=== PATIENT | female | born 1955 | race Caucasian/White ===

== ENCOUNTER 2017-07-06 06:01 | Day surgery (SDC) | payer OTHER ==
[~2017-07-06] VITALS: Ht 157.5 cm; Wt 86.8 kg
[~2017-07-06 06:01] MED LIST: ALBU8.5H8 IH; AMLO-512 PO; ASPI81TA33 PO; ATEN100T PO; ATOR20TA86 PO; CIPR-278 PO; CLON.5 PO; CYCL10 PO; DONE10TA8 PO; FLUT16H NASAL; FURO40I IM; HYDR-3965 PO; HYDR25SU11 PR; HYDR25SU7 PR; LOSA50TA37 PO; MOME13HF IH; MONT10TA21 PO; OMEP20 PO; PARO20TA24 PO; POTA8CAP10 PO; SODIUM CHLORIDE 0.9% 1,000 ML IV ONE; TRAM50TA4 PO
[2017-07-06] MEDS ORDERED: LIDOCAINE HCL 2% 30 ML JELLY TP ONE (06:02)
[2017-07-06] MEDS ORDERED: ALBUTEROL SULFATE 2.5 MG/0.5 ML NEB SOLUTION NEB ONE (06:02)
[2017-07-06] MEDS ORDERED: BENZOCAINE 20% 50 MCG/SPRAY 57 GM TP ONE (06:02)
[2017-07-06] MEDS ORDERED: LIDOCAINE HCL 4% 50 ML SOLUTION TP ONE (06:02)
[2017-07-06] MEDS ORDERED: MIDAZOLAM HCL 2 MG/2 ML VIAL ONE (07:38)
[2017-07-06] MEDS ORDERED: FentaNYL CITRATE-PF 100 MCG/2 ML VIAL ONE (07:39)
[2017-07-06] MEDS ORDERED: MethylPREDNISolone SOD SUCC 125 MG/2 ML VIAL IVP ONE (08:45)
[2017-07-06] MEDS ORDERED: MethylPREDNISolone SOD SUCC 125 MG/2 ML VIAL ONE (08:47)
[2017-07-06] MEDS ORDERED: OXYGEN THERAPY IH SCH (20:00)
== END 2017-07-06 09:55 | disposition home or self-care (01) ==
LOC: SURGERY 06:01
PROVIDERS: ATTEND Internal Medicine Critical Care Medicine
DX: J38.4 Edema of larynx (principal); B37.0 Candidal stomatitis; J84.111 Idiopathic interstitial pneumonia, not otherwise specified; J44.9 Chronic obstructive pulmonary disease, unspecified; I10 Essential (primary) hypertension; K21.9 Gastro-esophageal reflux disease without esophagitis; Z96.651 Presence of right artificial knee joint; Z79.82 Long term (current) use of aspirin; Z79.899 Other long term (current) drug therapy
CPT/HCPCS: 31623; 31624; 71010; 87015; 87070; 87147; 87205; 87220; 88108; 88312; J2250; J2930; J3010; J7030

== ENCOUNTER 2020-12-22 06:00 | Day surgery (SDC) | payer MEDICARE, OTHER ==
[~2020-12-22] VITALS: Ht 162.6 cm; Wt 77.3 kg
[~2020-12-22 06:00] MED LIST changes: +AMLO-258 PO; -AMLO-512 PO; -ASPI81TA33 PO; +ASPI81TA87 PO; -ATEN100T PO; +ATEN100T92 PO; +CLON-592 PO; -CLON.5 PO; +FURO10VI34 IM; -FURO40I IM; +MONT-35 PO; -MONT10TA21 PO; +PARO-38 PO; -PARO20TA24 PO; -POTA8CAP10 PO; +POTA8CAP20 PO; -SODIUM CHLORIDE 0.9% 1,000 ML IV ONE
[2020-12-22] MEDS ORDERED: ALBUTEROL SULFATE 2.5 MG/0.5 ML NEB SOLUTION NEB ONE (06:01)
[2020-12-22] MEDS ORDERED: BENZOCAINE 20% 50 MCG/SPRAY 57 GM TP ONE (06:01)
[2020-12-22] MEDS ORDERED: LIDOCAINE 2% 30 ML JELLY TP ONE (06:01)
[2020-12-22] MEDS ORDERED: LIDOCAINE 4% 50 ML SOLUTION TP ONE (06:01)
[2020-12-22] MEDS ORDERED: SODIUM CHLORIDE 0.9% 1,000 ML ONE (06:40)
[2020-12-22 07:23] LABS: COVID AG,FIA SOURCE NASOPHARYNGEAL
[2020-12-22] MEDS ORDERED: MIDAZOLAM HCL 2 MG/2 ML VIAL ONE (07:37)
[2020-12-22] MEDS ORDERED: FentaNYL CITRATE PF 100 MCG/2 ML VIAL ONE (07:37)
[2020-12-22] MEDS ORDERED: SODIUM CHLORIDE 0.9% 1,000 ML IV ONE (08:15)
[2020-12-22] MEDS ORDERED: MethylPREDNISolone SOD SUCC 125 MG/2 ML VIAL IVP ONE (09:00)
[2020-12-22] MEDS ORDERED: MethylPREDNISolone SOD SUCC 125 MG/2 ML VIAL ONE (09:35)
[2020-12-22] MEDS ORDERED: NITROGLYCERIN 0.4 MG SUBLINGUAL TABLET #25 SL ONE ×2 (10:12→10:15)
[2020-12-22] MEDS ORDERED: LORazepam 2 MG/ML VIAL ONE (10:14)
[2020-12-22] MEDS ORDERED: LORazepam 2 MG/ML VIAL IVP ONE (10:15)
[2020-12-22] MEDS ORDERED: OXYGEN THERAPY IH SCH (20:00)
== END 2020-12-22 11:15 | disposition home or self-care (01) ==
LOC: SURGERY 06:00
PROVIDERS: ATTEND Internal Medicine Critical Care Medicine
DX: J38.4 Edema of larynx (principal); B37.0 Candidal stomatitis; I10 Essential (primary) hypertension; Z98.890 Other specified postprocedural states; J45.909 Unspecified asthma, uncomplicated; Z87.01 Personal history of pneumonia (recurrent); Z79.899 Other long term (current) drug therapy
CPT/HCPCS: 31623; 31624; 71045; 87015; 87070; 87101; 87205; 87206; 87220; 87426; 88108; 88184; 88185; 88312; 93005; C9803; J2060; J2250; J2930; J3010; J7030; J7613; Z7610